=== PATIENT | female | born 1985 | race Caucasian/White ===

== ENCOUNTER 2017-12-14 21:15 | Emergency (ER) | payer SELFPAY | END 2017-12-14 21:48 | disposition home or self-care (01) | LOC: MADERS 21:15 | DX: K02.9 Dental caries, unspecified (principal); F17.210 Nicotine dependence, cigarettes, uncomplicated | CPT/HCPCS: 99283 ==

== ENCOUNTER 2017-12-19 05:25 | Emergency (ER) | payer SELFPAY ==
[2017-12-19] MEDS ORDERED: traMADol HCl 50 MG TAB ONE (05:52)
[2017-12-19] MEDS ORDERED: Ibuprofen 800 MG TAB ONE (05:52)
== END 2017-12-19 06:10 | disposition home or self-care (01) ==
LOC: MADERS 05:25
DX: S61.412A Laceration without foreign body of left hand, initial encounter (principal); F17.210 Nicotine dependence, cigarettes, uncomplicated; W26.8XXA Contact with other sharp object(s), not elsewhere classified, initial encounter
CPT/HCPCS: 12001